=== PATIENT | male | born 1960 | race Caucasian/White ===

== ENCOUNTER → 2022-06-14 | Day surgery (SDC) | payer OTHER ==
[~2022-06-14] MED LIST: Midazolam 1 MG/ML 2 ML SDV ONE; Propofol 200 MG/20 ML SDV ONE; Sodium Chloride 0.9% 1,000 ML IV SCH; fentaNYL 100 MCG/2 ML SDV ONE
== END ==
LOC: JP.SDS 08:01
PROVIDERS: ATTEND Surgery
DX: Z12.11 Encounter for screening for malignant neoplasm of colon (principal); D12.2 Benign neoplasm of ascending colon; D12.4 Benign neoplasm of descending colon
CPT/HCPCS: 45380; 88305; J2250; J2704; J3010; J7030